=== PATIENT | male | born 1990 | race African-American/Black ===

== ENCOUNTER 2021-01-19 23:09 | Emergency (ER) | payer SELFPAY ==
--- NOTE | 2021-01-19 23:23 | PC.NURSE ---
pt. family member in with patient. RN asked family member to wait in vestibule/ breeze way until pt. is taken to room. pt. family member states there are other people in the waiting room that aren't here to be seen why can they wait in there? RN informed family that minors can have their parents. RN states it is hospital policy and nothing more. pt. family member says Yeah Right.
[2021-01-19 23:37] VITALS: BP 129/74; PULSE 76; RESP 14; TEMP 36.6; O2SAT 99
--- NOTE | 2021-01-19 23:58 | ED.GENADULT ---
HPI - General Adult General Chief complaint: Neuro Symptoms/Deficit Stated complaint: R arm numbness Time Seen by Provider: 01/19/21 23:51 Source: patient and RN notes reviewed History of Present Illness HPI narrative: Patient is a 30 y/o male complaining of numbness of right arm for 2 weeks. There is no known alleviating or exacerbating factor. He also has some arm pain which he describes as pins and needles. He rates his pain as 9/10. He states that the pain radiates to right shoulder. He has no weakness. He is able to move right arm without difficulty. Review of Systems Constitutional: Constitutional: Denies chills, Denies fever(s), Denies headache(s) and Denies weakness Eyes: Eyes: Denies blurry vision ENT: Denies headache(s) and Denies neck pain Cardiovascular: Cardiovascular: Denies chest pain and Denies dyspnea Respiratory: Respiratory: Denies cough and Denies dyspnea Gastrointestinal: Gastrointestinal: Denies abdominal pain, Denies diarrhea, Denies nausea and Denies vomiting Genitourinary: Genitourinary: Denies hematuria and Denies dysuria Musculoskeletal: Musculoskeletal: Denies back pain, Denies neck pain, Reports numbness and Reports other (right arm pain) Neurologic: Denies headache(s), Reports numbness (right arm) and Denies weakness Exam Const: General: no acute distress and well developed Orientation/consciousness: oriented to person, oriented to place, oriented to time and patient oriented x3 HENMT: Head: normocephalic Ears: external ears normal General nose exam: Normal external nose present Eyes: General: appearance normal, both eyes and all related structures Conjunctivae: conjunctivae normal Neck: Neck: normal visual inspection and full ROM Chest: Chest palpation & inspection: normal inspection of the chest and no tenderness Resp: Effort & Inspection: normal respiratory effort Auscultation: clear to auscultation bilaterally Cardio: Rate: regular rate Rhythm: regular rhythm GI: GI Palp: No abdominal tenderness and Yes Soft to palpation Skin: General skin exam: normal color and turgor normal Neuro: General: oriented to person, oriented to place, oriented to time and patient oriented x3 Cranial nerves: Yes CN's II-XII intact bilaterally Cognition (Neuro): normal cognition Speech: normal speech Motor exam (neuro): 5/5 motor strength present throughout Sensory Exam: normal sensation Coordination: [id number] test normal and [id number] test normal Extrem: General: normal to inspection, full ROM and no pedal edema Psych: Appearance: grossly normal Mental Status: mental status grossly normal Affect: normal affect Course Vital Signs Vital signs: Vital Signs Temperature 36.6 C 01/19/21 23:37 Pulse Rate 76 01/19/21 23:37 Respiratory Rate 14 01/19/21 23:37 Blood Pressure 129/74 01/19/21 23:37 Pulse Oximetry 99 01/19/21 23:37 Temperature 36.6 C 01/19/21 23:37 Pulse Rate 80 01/20/21 00:59 Respiratory Rate 16 01/20/21 00:59 Blood Pressure 116/66 01/20/21 00:59 Pulse Oximetry 100 01/20/21 00:59 Medical Decision Making Vital Signs Vital Signs: Vital Signs Temperature 36.6 C 01/19/21 23:37 Pulse Rate 76 01/19/21 23:37 Respiratory Rate 14 01/19/21 23:37 Blood Pressure 129/74 01/19/21 23:37 Pulse Oximetry 99 01/19/21 23:37 Temperature 36.6 C 01/19/21 23:37 Pulse Rate 80 01/20/21 00:59 Respiratory Rate 16 01/20/21 00:59 Blood Pressure 116/66 01/20/21 00:59 Pulse Oximetry 100 01/20/21 00:59 Discharge Plan Discharge Clinical Impression: Cervical radiculopathy Patient Disposition: Home, Self-Care Condition: Stable Instructions: Cervical Radiculopathy (ED) Prescriptions: New cyclobenzaprine 10 mg tablet 10 mg PO TID PRN (Reason: muscle spasm) Qty: 10 RF: 0 Follow-up/Referrals: PHYSICIAN,PAINTING WORKER [Non-Staff] - Stand Alone Forms: Work/School Release IP
[2021-01-20 00:30] VITALS: O2SAT 98
[2021-01-20 00:59] VITALS: BP 116/66; PULSE 80; RESP 16; O2SAT 100
== END 2021-01-20 01:01 | disposition home or self-care (01) ==
LOC: ANHED 01-20 00:23
PROVIDERS: Emergency Provider Emergency Medicine; PCP Family Medicine
DX: M54.12 Radiculopathy, cervical region (principal)
CPT/HCPCS: 99283